=== PATIENT | female | born 1960 | race Caucasian/White ===

== ENCOUNTER 2020-04-18 16:41 | Inpatient (IN) | payer BC, OTHER ==
[2020-04-18] MEDS ORDERED: HYDROmorphone/Normal Saline 15 MG/30 ML PCA IV PRN (16:58)
[2020-04-18] MEDS ORDERED: Naloxone 0.4 MG/ML SDV IV PRN (17:00)
[2020-04-18] MEDS ORDERED: Meropenem 500 MG SDV ONE (17:19)
[2020-04-18] MEDS ORDERED: Scopolamine 1.5 MG Transdermal Patch TRDERM PRN (17:23)
[2020-04-18] MEDS ORDERED: Succinylcholine 200 MG/10 ML MDV ONE (17:30)
[2020-04-18] MEDS ORDERED: Propofol 200 MG/20 ML SDV ONE (17:30)
[2020-04-18] MEDS ORDERED: Rocuronium 50 MG/5 ML Vial ONE ×2 (17:30→18:52)
[2020-04-18] MEDS ORDERED: fentaNYL 250 MCG/5 ML SDV ONE ×2 (17:30→19:00)
[2020-04-18] MEDS ORDERED: Albuterol/Ipratropium 3.0-0.5 MG/3 ML Neb Soln INH ONE (17:30)
[2020-04-18] MEDS ORDERED: Neostigmine Methylsulfate 1 MG/ML 5 ML Syringe ONE (17:30)
[2020-04-18] MEDS ORDERED: Meropenem 500 MG in Sodium Chloride 0.9% 50 ML IV ONE (17:30)
[2020-04-18] MEDS ORDERED: Lactated Ringers 500 ML IV ONE (17:30)
[2020-04-18] MEDS ORDERED: Ondansetron 4 MG/2 ML SDV ONE (17:30)
[2020-04-18] MEDS ORDERED: Dexamethasone 4 MG/ML SDV ONE (17:30)
[2020-04-18] MEDS ORDERED: Glycopyrrolate 0.2 MG/ML 5 ML MDV ONE (17:30)
[2020-04-18] MEDS ORDERED: Midazolam 1 MG/ML 2 ML SDV ONE (18:04)
[2020-04-18] MEDS ORDERED: Dextrose 5%-Lactated Ringers 1,000 ML IV SCH ×2 (18:30→22:00)
[2020-04-18] MEDS ORDERED: Lactated Ringers 1,000 ML ONE (19:04)
[2020-04-18] MEDS ORDERED: Ondansetron 4 MG/2 ML SDV IVPUSH PRN (21:59)
[2020-04-18] MEDS ORDERED: Cyclobenzaprine 10 MG Tab PO PRN (22:00)
[2020-04-18] MEDS ORDERED: Pantoprazole 40 MG Vial IV ONE (22:00)
[2020-04-18] MEDS ORDERED: hydrOXYzine HCL 100 MG/2 ML SDV IM PRN (22:00)
[2020-04-18] MEDS ORDERED: LORazepam 1 MG Tab PO PRN (22:06)
[2020-04-18] MEDS ORDERED: diphenhydrAMINE 25 MG Cap PO PRN (22:07)
[2020-04-18] MEDS: Montelukast 10 MG Tab PO SCH (22:27)
[2020-04-18] MEDS: Gabapentin 300 MG Cap PO SCH (22:27)
[2020-04-18] MEDS: Hypromellose 0.3% Ophth Soln 15 ML Bottle EYEBOTH SCH (22:27)
[2020-04-18] MEDS: Albuterol/Ipratropium 3.0-0.5 MG/3 ML Neb Soln INH SCH (22:29)
[2020-04-19] MEDS: Lactated Ringers 1,000 ML IV SCH ×3 (00:01→17:17)
[2020-04-19] MEDS: Meropenem 500 MG in Sodium Chloride 0.9% 50 ML IV SCH ×5 (05:24→18:05)
[2020-04-19] MEDS: Albuterol/Ipratropium 3.0-0.5 MG/3 ML Neb Soln INH SCH ×4 (07:03→20:56)
[2020-04-19] MEDS ORDERED: Albuterol/Ipratropium 3.0-0.5 MG/3 ML Neb Soln INH PRN (07:24)
[2020-04-19] MEDS ORDERED: 50% Dextrose in Water 50 ML Syringe IVPUSH PRN (07:44)
[2020-04-19] MEDS ORDERED: Glucose Gel 15 GM in 37.5 GM Tube PO PRN (07:44)
[2020-04-19] MEDS ORDERED: Insulin Lispro 100 Unit/ML 3 ML KwikPen SUBCUT PRN (07:44)
[2020-04-19] MEDS ORDERED: Glucagon,Human Recombinant 1 MG Vial IM PRN (07:44)
[2020-04-19] MEDS: Levothyroxine 100 MCG Tab PO SCH (08:35)
[2020-04-19] MEDS: Gabapentin 300 MG Cap PO SCH ×2 (08:35→20:53)
[2020-04-19] MEDS: Losartan 50 MG Tab PO SCH (08:35)
[2020-04-19] MEDS: Enoxaparin 40 MG/0.4 ML Syringe SUBCUT SCH ×2 (08:35→20:53)
[2020-04-19] MEDS: Venlafaxine 75 MG Cap.ER PO SCH (08:35)
[2020-04-19] MEDS: [UNRECOGNIZED DRUG - OTHER] TOP SCH (08:37)
[2020-04-19] MEDS ORDERED: Aspirin 81 MG Tab.EC PO SCH (09:00)
[2020-04-19] MEDS: Hypromellose 0.3% Ophth Soln 15 ML Bottle EYEBOTH SCH ×2 (11:42→20:52)
[2020-04-19] MEDS: Insulin Lispro 100 Unit/ML 3 ML KwikPen SUBCUT PRN ×2 (16:17→22:30)
[2020-04-19] MEDS: Pantoprazole 40 MG Vial IV SCH (20:52)
[2020-04-19] MEDS: Montelukast 10 MG Tab PO SCH (20:53)
[2020-04-19] MEDS: Aspirin 81 MG Tab.EC PO SCH (20:53)
[2020-04-20] MEDS: Meropenem 500 MG in Sodium Chloride 0.9% 50 ML IV SCH (00:26)
[2020-04-20] MEDS: Lactated Ringers 1,000 ML IV SCH ×3 (02:33→22:15)
[2020-04-20] MEDS: Insulin Lispro 100 Unit/ML 3 ML KwikPen SUBCUT PRN ×4 (04:28→23:15)
[2020-04-20] MEDS: Albuterol/Ipratropium 3.0-0.5 MG/3 ML Neb Soln INH SCH ×4 (07:01→21:06)
[2020-04-20] MEDS: Levothyroxine 100 MCG Tab PO SCH (07:46)
[2020-04-20] MEDS: Docusate Sodium 100 MG Cap PO SCH ×2 (08:58→21:06)
[2020-04-20] MEDS: Gabapentin 300 MG Cap PO SCH ×2 (08:59→21:05)
[2020-04-20] MEDS: Bisacodyl 5 MG Tab PO SCH ×2 (08:59→21:06)
[2020-04-20] MEDS: Hypromellose 0.3% Ophth Soln 15 ML Bottle EYEBOTH SCH ×2 (08:59→21:06)
[2020-04-20] MEDS: Venlafaxine 75 MG Cap.ER PO SCH (08:59)
[2020-04-20] MEDS: Enoxaparin 40 MG/0.4 ML Syringe SUBCUT SCH ×2 (09:00→21:05)
[2020-04-20] MEDS: [UNRECOGNIZED DRUG - OTHER] TOP SCH (09:01)
[2020-04-20] MEDS: Losartan 50 MG Tab PO SCH (09:04)
--- NOTE | 2020-04-20 09:23 | PN ---
DATE OF SERVICE: 04/20/2020 SUBJECTIVE: Flavia is postoperative day #1. Vital signs have been stable. Blood sugars have been 185 and 184. Oral intake 220. Output via Coughlin catheter 1465. CORY drain put out 125 and CORY drain 2 put out 85. She states pain is controlled. The only question and concern she has is that a caffeine headache. She usually drinks [address] Peppers a day in [employer] with 3 pumps of mocha. REVIEW OF SYSTEMS: Remainder of review of systems negative for any pertinent positives and negatives. OBJECTIVE: GENERAL: Flavia is a pleasant 59-year-old female. She is alert and orientated. VITAL SIGNS: TPR 96.9; 82; 16; blood pressure 181/74. HEENT: Negative. NECK: Supple. HEART: Regular rate and rhythm. LUNGS: Clear. ABDOMEN: Dressings dry and intact. CORY drains as above, and the color is light pink. EXTREMITIES: Without peripheral edema. ASSESSMENT: Exploratory laparotomy with: 1. Right colectomy. 2. Excision of nodular lesion on distal small bowel 5.2 cm. 3. Separate small-bowel resection. 4. Excision of small mass, pyloric limb of the small bowel. 5. Biopsy of peritoneum inferior to cecum. 6. Repair of incarcerated incisional hernia. 7. Mobilization of omentum into pelvis. POSTOPERATIVE DIAGNOSES: 1. Large cystic mass involving appendix. 2. Loose peritoneal implant over distal small bowel. 3. Nodular lesion within the wall of the distal PB limb, small bowel. 4. Periumbilical incarcerated incisional hernia. 5. Date of surgery: 04/18/2020. Surgeon: James You MD. PLAN: 1. Schedule and have consent signed for delayed primary closure on , 04/21/2020 at 07:15 a.m., IV, local sedation with TAP block. James oYu MD. 2. Leave Coughlin in for accurate intake and output. 3. Communication order written. May have coffee and tea. 4. Dulcolax 2 tablets b.i.d. orally until the patient has bowel movements. 5. Colace 100 mg b.i.d. 6. Decrease IV to 100 mL per hour. 7. Continue use of incentive spirometer. 8. We will evaluate p.r.n. or in a.m. Rani Rojo PA-C /[id number]
[2020-04-20] MEDS ORDERED: FLU VACC QS2020-21(6MOS UP)/PF 60 MCG/0.5 ML SYRINGE IM ONE (10:00)
--- NOTE | 2020-04-20 19:47 | PN ---
DATE OF SERVICE: 04/19/2020 The patient has been afebrile with stable vital signs. Urine output has been adequate. Blood sugar is somewhat high, we will begin some insulin coverage today. Otherwise, no major problems were noted. The Coughlin catheter we will leave in 1 more day to make sure the patient is going to maintain adequate urine output. We will switch the IV over to simple LR and as mentioned above begin the insulin coverage. The patient has evidence for pulmonary embolism, and we will start some Lovenox and additional SCDs. Otherwise, maximize activity and work with pulmonary toilet. James You MD /[id number]
[2020-04-20] MEDS: Pantoprazole 40 MG Vial IV SCH (20:54)
[2020-04-20] MEDS: Aspirin 81 MG Tab.EC PO SCH (21:05)
[2020-04-20] MEDS: Montelukast 10 MG Tab PO SCH (21:06)
[2020-04-21] MEDS: Insulin Lispro 100 Unit/ML 3 ML KwikPen SUBCUT PRN ×4 (05:22→22:01)
[2020-04-21] MEDS ORDERED: Meropenem 500 MG SDV ONE (06:43)
[2020-04-21] MEDS ORDERED: Lidocaine 1% with EPINEPHrine 1:100,000 50 ML MDV ONE (06:43)
[2020-04-21] MEDS ORDERED: Bupivacaine 0.5% 50 ML MDV ONE (06:43)
[2020-04-21] MEDS ORDERED: fentaNYL 100 MCG/2 ML SDV ONE (07:03)
[2020-04-21] MEDS ORDERED: Propofol 200 MG/20 ML SDV ONE ×2 (07:03→07:47)
[2020-04-21] MEDS ORDERED: Midazolam 1 MG/ML 2 ML SDV ONE (07:04)
[2020-04-21] MEDS ORDERED: Dexamethasone 4 MG/ML SDV ONE (07:25)
[2020-04-21] MEDS ORDERED: Ondansetron 4 MG/2 ML SDV ONE (07:25)
[2020-04-21] MEDS: Albuterol/Ipratropium 3.0-0.5 MG/3 ML Neb Soln INH SCH ×4 (07:26→20:05)
--- NOTE | 2020-04-21 08:18 | PN ---
DATE OF SERVICE: 04/21/2020 SUBJECTIVE: Flavia is postoperative day. She is n.p.o. for delayed primary closure. Afebrile. Oral intake not recorded. Urine output via Coughlin catheter is 655. CORY drains 1 and 2 put out 80 and 50, and she has had 2 bowel movements. Pain has been controlled with ASSISTANT SPA DIRECTOR. REVIEW OF SYSTEMS: Remainder of review of systems negative for any pertinent positives and negatives. OBJECTIVE: GENERAL: Flavia Aragon is a pleasant 59-year-old female. VITAL SIGNS: TPR from 0300; 96.7, 110, 18, and blood pressure 128/57. HEENT: Negative. NECK: Supple. HEART: Regular rate and rhythm. LUNGS: Clear. ABDOMEN: Dressing has been saturating, ABDs x2, and it had to be changed. CORY drain 1 and 2 put out 80 and 50. Abdominal binder is on. EXTREMITIES: Without peripheral edema. ASSESSMENT: Exploratory laparotomy with; 1. Right colectomy. 2. Excision of nodular lesion on distal small bowel, 5.2 cm. 3. Separate small-bowel resection. 4. Excision of small mass pyloric limb of small bowel. 5. Biopsy of peritoneum inferior to cecum. 6. Repair of incarcerated incisional hernia. 7. Mobilization of omentum into pelvis. POSTOPERATIVE DIAGNOSES: 1. Large cystic mass involving appendix. 2. Loose peritoneal implant over distal small bowel. 3. Nodular lesion within the wall of the distal pancreatico-biliary limb, small bowel. 4. Periumbilical incarcerated incisional hernia. DATE OF SURGERY: 04/18/2020. SURGEON: James You MD. PLAN: Orders to be written after delayed primary closure. Rani Rojo PA-C /[id number]
[2020-04-21] MEDS: Lactated Ringers 1,000 ML IV SCH ×2 (08:42→11:54)
[2020-04-21] MEDS: [UNRECOGNIZED DRUG - OTHER] TOP SCH (09:45)
[2020-04-21] MEDS: oxyCODONE 5 MG Tab PO PRN ×3 (09:45→17:44)
[2020-04-21] MEDS: Levothyroxine 100 MCG Tab PO SCH (09:45)
[2020-04-21] MEDS: Losartan 50 MG Tab PO SCH (09:47)
[2020-04-21] MEDS: Venlafaxine 75 MG Cap.ER PO SCH (09:47)
[2020-04-21] MEDS: Hypromellose 0.3% Ophth Soln 15 ML Bottle EYEBOTH SCH ×2 (09:47→20:00)
[2020-04-21] MEDS: Docusate Sodium 100 MG Cap PO SCH ×2 (09:47→19:59)
[2020-04-21] MEDS: Bisacodyl 5 MG Tab PO SCH ×2 (09:47→19:59)
[2020-04-21] MEDS: Gabapentin 300 MG Cap PO SCH ×2 (09:47→19:59)
[2020-04-21] MEDS: Enoxaparin 40 MG/0.4 ML Syringe SUBCUT SCH (09:59)
[2020-04-21] MEDS: Acetaminophen 500 MG Tab PO SCH ×3 (10:44→22:00)
[2020-04-21] MEDS ORDERED: FLU VACC QS2020-21(6MOS UP)/PF 60 MCG/0.5 ML SYRINGE IM ONE (15:00)
[2020-04-21] MEDS ORDERED: Lactated Ringers 1,000 ML IV SCH (16:45)
[2020-04-21] MEDS ORDERED: Scopolamine 1.5 MG Transdermal Patch TOP SCH (17:00)
[2020-04-21] MEDS: Pantoprazole 40 MG Vial IV SCH (19:53)
[2020-04-21] MEDS: Montelukast 10 MG Tab PO SCH (20:00)
[2020-04-21] MEDS: Aspirin 81 MG Tab.EC PO SCH (20:00)
[2020-04-21] MEDS ORDERED: Ondansetron 4 MG Tab.DIS PO PRN (22:18)
[2020-04-22] MEDS: Acetaminophen 500 MG Tab PO SCH ×2 (04:48→09:14)
[2020-04-22] MEDS: Insulin Lispro 100 Unit/ML 3 ML KwikPen SUBCUT PRN ×2 (05:26→10:28)
[2020-04-22] MEDS: Albuterol/Ipratropium 3.0-0.5 MG/3 ML Neb Soln INH SCH (07:48)
[2020-04-22 07:58] VITALS: BP 151/72
[2020-04-22] MEDS: Docusate Sodium 100 MG Cap PO SCH (08:12)
[2020-04-22] MEDS: Levothyroxine 100 MCG Tab PO SCH (08:12)
[2020-04-22 08:14] VITALS: PULSE 82
[2020-04-22] MEDS: Losartan 50 MG Tab PO SCH (08:14)
[2020-04-22] MEDS: Gabapentin 300 MG Cap PO SCH (08:14)
[2020-04-22] MEDS: Hypromellose 0.3% Ophth Soln 15 ML Bottle EYEBOTH SCH (08:15)
[2020-04-22] MEDS: Venlafaxine 75 MG Cap.ER PO SCH (08:15)
[2020-04-22] MEDS: Bisacodyl 5 MG Tab PO SCH (08:16)
[2020-04-22] MEDS: [UNRECOGNIZED DRUG - OTHER] TOP SCH (08:17)
[2020-04-22] MEDS ORDERED: FLU VACC QS2020-21(6MOS UP)/PF 60 MCG/0.5 ML SYRINGE IM ONE (10:00)
--- NOTE | 2020-04-22 14:50 | PN ---
DATE OF SERVICE: 04/21/2020 The patient has been afebrile with stable vital signs. She did move her bowels overnight and will be on full liquid diet and advance as tolerated. She underwent delayed primary closure without incident. Today, will go over to oral pain medication. Today her CORY drains and Couglhin catheter will be removed. She did have some oozing from the incision. Today we will discontinue her Lovenox and make sure she is up and walking as much as possible. The pathology report is still pending and she may be ready for discharge home tomorrow. James You MD /[id number]
--- NOTE | 2020-04-22 16:37 | DISCH ---
ADMISSION DIAGNOSES: 1. Abdominal pain, status post Artemio-en-Y gastric bypass surgery. 2. Unspecified surgical malabsorption. 3. B12 deficiency. 4. Vitamin D deficiency. 5. Diabetes mellitus. 6. Hypertension. 7. Hypothyroidism. 8. Dysthymia. 9. Gout. 10.Hyperlipidemia. 11.Obstructive sleep apnea, with use of CPAP. PROCEDURES PERFORMED: 1. Exploratory laparotomy with: a. Right colectomy. b. Excision of nodular lesion on distal small bowel, 5.2 cm. c. Separate small bowel resection. d. Excision of small mass, pyloric limb of the small bowel. e. Biopsy of peritoneum inferior to cecum. f. Repair of incarcerated incisional hernia. g. Mobilization of omentum into pelvis. 2. Delayed primary closure for open abdominal incision, 04/20/2020. POSTOPERATIVE DIAGNOSES: 1. Large cystic mass involving the appendix. 2. Loose peritoneal implant over distal small bowel. 3. Nodular lesion within the wall of the distal PB limb, small bowel. 4. Periumbilical incarcerated incisional hernia. DATE OF SURGERY: 04/18/2020. SURGEON: James You MD. HISTORY: Flavia is a 59-year-old female who presented with severe abdominal pain. After preoperative evaluation and discussion of possible risks and possible complications, she wished to proceed with surgical procedure. Surgery was on 04/19/2020. She had no operative complications. On postoperative day 1, blood sugars were monitored. Pain was controlled with LANGUAGE THERAPIST. Bowel stimulation was started. IV was decreased to 100 mL/hour. On postoperative day 2, she had delayed primary closure and was started on oral pain medication, had bowel movements. Blood sugars continued to be monitored. On 04/22/2020, Flavia was able to be discharged to home. Vital signs stable. Activity good. Pain managed. Oral intake adequate at 2600, and urine output 2200. PHYSICAL EXAMINATION: GENERAL: Flavia Aragon is a 59-year-old female. VITAL SIGNS: TPR is 98.2, 82, 16; blood pressure 151/72. HEENT: Negative. NECK: Supple. HEART: Regular rate and rhythm. LUNGS: Clear. ABDOMEN: Dressings dry and intact. Aquacel dressing is on, 4x4 over CORY drain sites. EXTREMITIES: Without peripheral edema. DISPOSITION: Discharged to home. CONDITION: Stable and improving. FOLLOWUP: Appointment with Rani Rojo PA-C, on 05/02/2020 at 10 a.m. HOME MEDICATIONS: 1. Flexeril 10 mg q.6 hours p.r.n. muscle spasms, #30. 2. Oxycodone 5 mg every 4 hours p.r.n. pain, #42. 3. Tylenol Extra Strength 1000 mg every 6 hours p.r.n. pain. 4. Albuterol 1 to 2 puffs every 4 hours p.r.n. shortness of breath. 5. Aspirin 81 mg oral daily. 6. Vitamin D3 one capsule oral daily. 7. Vitamin B12 one sublingual daily. 8. Epinephrine 1 pen subcu as directed p.r.n. allergies. 9. Flonase 2 sprays in each nostril once daily. 10.Folic acid 1 tablet oral daily. 11.Neurontin 1 tablet oral twice daily. 12.Nizoral 2% cream 1 applicator b.i.d. for rash. 13.Probiotic 1 capsule oral daily. 14.Ativan 1 tablet every 6 hours p.r.n. anxiety. 15.Levothyroxine 100 mcg daily. 16.Losartan 1 tablet oral daily. 17.Singulair 10 mg oral daily p.r.n. allergies. 18.Multivitamin 1 twice daily. 19.Venlafaxine XR 2 capsules oral daily. 20.Restasis 1 drop in each eye twice daily. 21.Valium 1 tablet as needed p.r.n. 30 to 60 minutes before procedure, before flying. 22.Benadryl 1 at bedtime p.r.n. sleep. 23.Tramadol, discontinue while taking the oxycodone. DISCHARGE INSTRUCTIONS: Diet: Usual diet as tolerated. No raw vegetables or fruits. Drink 8 to 10 glasses of water a day. Activity: No lifting greater than 10 pounds for 4 weeks. Driving After Discharge: Do not drive for 1 week and while on pain medication. Shower/Bathing: May shower. Notify provider if any fever, chills, night sweats, or fatigue. Keep site clean and dry. Wear abdominal binder for 6 weeks as tolerated. Replace Aquacel dressing on 04/24/2020, and then take off the Aquacel dressing on 04/27/2020. Cover kerri with an ABD or leave open. Special Instruction: Use incentive spirometer 10 times every hour while awake.
[2020-04-22] MEDS ORDERED: Pantoprazole 40 MG Tab.CR PO SCH (21:00)
--- NOTE | 2020-04-24 12:05 | OR ---
DATE OF PROCEDURE: 04/18/2020 SURGEON: James You MD PREOPERATIVE DIAGNOSIS: Markedly enlarged cystic appendix. POSTOPERATIVE DIAGNOSES: 1. Large cystic mass involving appendix. 2. Loose peritoneal implant overlying the distal small bowel. 3. Nodular lesion within wall of distal biliopancreatic limb of small bowel. 4. Periumbilical incisional hernia. OPERATIVE PROCEDURES: Exploratory laparotomy with: 1. Right colectomy (63337). 2. Excision of nodular lesion of distal small bowel (75452). 3. Separate small bowel resection (62240). 4. Excision of the small mass involving wall of biliopancreatic limb of small bowel (09163). 5. Repair of incarcerated incisional hernia (46239). 6. Mobilization of omentum into pelvis to viscera from the pelvic and lower abdominal area (75227). ANESTHESIA: General. INDICATIONS FOR PROCEDURE: A 59-year-old female presenting with several days of increasing right lower abdominal pain. A CT scan was obtained earlier today which showed a very enlarged appendix filled with what appeared to be largely fluid. This certainly is suspicious for an appendiceal neoplasm, and given this, plan is to proceed with exploratory laparotomy, and our goal will be to get the appendix out intact, most likely by means of a right colectomy. Potential risks of procedure including bleeding, infection, leaks from various GI tract closures, or possible local or distant tumor recurrence were all reviewed, and the patient wishes to proceed. DETAILS OF PROCEDURE: The patient was taken to the operating room, placed in a supine position. After general endotracheal anesthesia was induced, a Coughlin catheter was inserted, and the abdomen prepped and draped. A midline incision was then made from somewhat above the umbilicus to somewhat below it, carried down through the full thickness of abdominal wall. During the course of the dissection, a periumbilical incisional hernia was encountered, and the hernia contents were excised. General exploration of the patient had as expected a large white cystic-appearing appendix. This was associated with generalized intense inflammation and adherence to the cecum. General exploration revealed no evidence of peritoneal carcinomatosis per se. There was a small strand of whitish material loosely adherent to the distal small bowel that may have simply at some point come off the appendix, which at this point was a large white cystic mass. Apart from that, there was no significant lymphadenopathy within the ileocolic or right colic vascular chains, and the patient was noted to have a small nodule in the distal aspect of the biliopancreatic limb of the small bowel. This was not a peritoneal lesion, but something more within the wall of the bowel. This was excised transversely with a ANNIA stapler, and the loose nodular area of the distal small bowel was also then excised. This measured 5.2 cm in total length. At this point, decision was made to proceed with a right colectomy. Peritoneum lateral to the cecum and ascending colon were then divided. This allowed immediate mobilization of the right colon including the area of the appendix. The peritoneum just below where the appendix was lying was somewhat finely roughened, and this specimen of peritoneum was then excised and sent as a separate surgical specimen. Once the right colon was well-mobilized, the distal small bowel was then divided with ANNIA stapler as was the mid transverse colon. In order to get the anastomosis up to the transverse colon without tension, an additional 15 cm of small bowel was then excised distally with ANNIA stapler. The mesentery was then resected with ANNIA kerri as well taking the ileocolic chain down flush with its take-off from the superior mesenteric artery. Similarly, the right colic chain was taken off flush with the superior mesenteric artery and remaining mesenteric attachments divided and specimen delivered from the field. This specimen was not opened at the appendiceal level, so as to allow a well-constructed pathology evaluation. GI tract continuity was then accomplished with [id number] ileocolic anastomosis with 2 internal firings of the ANNIA 60 mm stapler, common opening was closed transversely with the same stapler. The angles were then anastomosed. The mesenteric defect approximated with some 3-0 Vicryl stitch and reinforced also with fibrin sealant. The abdomen was then irrigated with antibiotic-containing saline solution. Two Mauro- Berkowitz drains were then placed through stab wounds lateral to the main incision. Omentum was then mobilized down into the pelvis and lower abdomen to displace the viscera from those surfaces in the event that postoperative radiation treatment might be at some point required. The midline fascia was then approximated with #2 Vicryl stitch, which included repair of the incarcerated incisional hernia, which had contained some omentum in it earlier. The skin and subcutaneous tissue were felt to be at high risk for wound infection if they were closed, and given this, the skin and subcutaneous tissue were packed open for a planned delayed primary closure in 48 hours. The patient was taken to the recovery room in satisfactory condition. James You MD /[id number]
--- NOTE | 2020-04-26 14:00 | OR ---
DATE OF PROCEDURE: 04/21/2020 SURGEON: James You MD PREOPERATIVE DIAGNOSIS: Open abdominal incision. POSTOPERATIVE DIAGNOSIS: Open abdominal incision. PROCEDURE: Delayed primary closure of open abdominal incision. ANESTHESIA: IV sedation plus local. INDICATION FOR PROCEDURE: The patient is status post a complicated right colectomy secondary to probable appendiceal tumor the skin and subcutaneous tissue were felt to be high risk for wound infection if primary closure was undertaken, and given this, the skin and subcutaneous tissue were packed open for delayed primary closure at this time. Potential risks including bleeding and infection were reviewed, and the patient wishes to proceed. DETAILS OF PROCEDURE: The patient was taken to the operating room, placed in the supine position. IV sedation was administered, after which the abdominal dressing was taken down and inspected. This was found to be clean and the abdomen was then prepped and draped. Using ultrasound guidance, bilateral transversus abdominis plane blocks were then placed and the incision was anesthetized with 1% lidocaine mixed with Marcaine and irrigated with meropenem-containing saline solution. Subcutaneous tissue was approximated with 2 layers of 3-0 and 4-0 Vicryl stitch deep and kerri for the skin. Dressing was applied. The patient was taken to the recovery room in satisfactory condition. James You MD /[id number]
== END 2020-04-22 10:45 | disposition home or self-care (01) | DRG 221 ==
LOC: JP.MS 16:41
PROVIDERS: ADMIT Surgery; ATTEND Surgery
PROC: 0DTF0ZZ Resection of Right Large Intestine, Open Approach (ICD-10-PCS; principal; 2020-04-18)
PROC: 0DB80ZZ Excision of Small Intestine, Open Approach (ICD-10-PCS; 2020-04-18)
PROC: 0DB80ZZ Excision of Small Intestine, Open Approach (ICD-10-PCS; 2020-04-18)
PROC: 0WQF0ZZ Repair Abdominal Wall, Open Approach (ICD-10-PCS; 2020-04-18)
DX: K35.80 Unspecified acute appendicitis (principal); K43.0 Incisional hernia with obstruction, without gangrene; Z20.828 Contact with and (suspected) exposure to other viral communicable diseases; K63.89 Other specified diseases of intestine; K91.2 Postsurgical malabsorption, not elsewhere classified; E55.9 Vitamin D deficiency, unspecified; I10 Essential (primary) hypertension; E03.9 Hypothyroidism, unspecified; M10.9 Gout, unspecified; E78.5 Hyperlipidemia, unspecified; G47.33 Obstructive sleep apnea (adult) (pediatric); E53.8 Deficiency of other specified B group vitamins; Z90.49 Acquired absence of other specified parts of digestive tract; Z79.890 Hormone replacement therapy; Z79.899 Other long term (current) drug therapy
CPT/HCPCS: 36415; 80053; 82378; 82607; 82728; 82746; 82962; 83735; 83880; 84100; 84443; 85027; 88112; 88305; 88307; 88309; 88341; 88342; 90686; 94640; 94762; 97162-GP; 97530-GP; 97535-GP; A9270-GY; C9113; G0008; J0131; J0171; J0330; J1100; J1170; J1650; J1790; J1815; J2185; J2250; J2405; J2704; J2710; J2795; J3010; J3490; J7050; J7120; J7121; J7620-GY; U0002

== ENCOUNTER 2020-09-05 06:07 | Day surgery (SDC) | payer BC ==
[2020-09-05] MEDS ORDERED: Dextrose 5%-Lactated Ringers 1,000 ML IV SCH (06:56)
[2020-09-05] MEDS ORDERED: fentaNYL 100 MCG/2 ML SDV ONE (07:26)
[2020-09-05] MEDS ORDERED: Propofol 200 MG/20 ML SDV ONE (07:26)
[2020-09-05] MEDS ORDERED: Midazolam 1 MG/ML 2 ML SDV ONE (07:26)
[2020-09-05 09:19] VITALS: BP 136/85; PULSE 55
--- NOTE | 2020-09-11 11:10 | OR ---
DATE OF PROCEDURE: 09/05/2020 SURGEON: James You MD PREOPERATIVE DIAGNOSIS: Status post right colectomy for appendiceal carcinoma. POSTOPERATIVE DIAGNOSES: 1. Status post right colectomy for appendiceal carcinoma with no evidence of recurrence. 2. Minimal left colonic diverticulosis. OPERATIVE PROCEDURE: Flexible colonoscopy. ANESTHESIA: IV sedation. INDICATIONS FOR PROCEDURE: The patient is several months status post a right colectomy for appendiceal carcinoma. Per Oncology, the patient was felt to be more or less a "surgical cure." She would still be at some risk for anastomotic recurrence. Given this, she is to undergo a colonoscopy at this point. This will also serve as a screening colonoscopy for remainder of the colon. Potential risks including bleeding and perforation were discussed, and the patient wishes to proceed. DETAILS OF PROCEDURE: The patient was taken to the operating room, placed in a left lateral decubitus position. IV sedation was administered, after which the initial digital rectal exam was performed and was unremarkable. Colonoscope was then passed into the rectum with retroflexion revealing uncomplicated hemorrhoidal columns. Scope was eventually passed to the ileotransverse colon anastomosis. To that level, the prep was quite good. The patient had some left colonic diverticulosis which was otherwise uncomplicated. Otherwise, the examination was normal. Specifically, there were no areas of polyps or other signs of neoplasia. There were no signs of anastomotic recurrence at the ileocolic anastomosis. Scope was then withdrawn and the above findings reconfirmed, and the procedure was then concluded. The patient is at highest risk for recurrence in this case, probably less with anastomotic recurrence as by definition probably with some tumor cells within the lumen of the colon at the time of the resection. Given this, we would recommend a repeat colonoscopy in 1 year. If that is normal, the patient would thereafter be recommended to have a colonoscopy every 5 years. James You MD /[id number]
== END 2020-09-05 09:46 | disposition home or self-care (01) ==
LOC: JP.SDS 06:07
PROVIDERS: ATTEND Surgery
DX: Z12.11 Encounter for screening for malignant neoplasm of colon (principal); K57.30 Diverticulosis of large intestine without perforation or abscess without bleeding; K64.9 Unspecified hemorrhoids; I10 Essential (primary) hypertension; G47.33 Obstructive sleep apnea (adult) (pediatric); E66.9 Obesity, unspecified; Z90.49 Acquired absence of other specified parts of digestive tract; Z85.09 Personal history of malignant neoplasm of other digestive organs; Z68.39 Body mass index [BMI] 39.0-39.9, adult
CPT/HCPCS: J2250; J2704; J3010

== ENCOUNTER 2020-10-31 05:55 | Inpatient (IN) | payer BC ==
[2020-10-31] MEDS ORDERED: Acetaminophen 500 MG Tab PO ONE (06:15)
[2020-10-31] MEDS ORDERED: Gabapentin 300 MG Cap PO ONE (06:15)
[2020-10-31] MEDS ORDERED: Bupivacaine 0.5% 50 ML MDV ONE ×2 (06:39→09:24)
[2020-10-31] MEDS ORDERED: Lidocaine 1% with EPINEPHrine 1:100,000 50 ML MDV ONE ×2 (06:39→09:24)
[2020-10-31] MEDS ORDERED: Meropenem 500 MG SDV ONE (06:39)
[2020-10-31] MEDS ORDERED: Albuterol/Ipratropium 3.0-0.5 MG/3 ML Neb Soln NEB ONE (07:00)
[2020-10-31] MEDS ORDERED: Dextrose 5%-Lactated Ringers 1,000 ML IV SCH (07:00)
[2020-10-31] MEDS ORDERED: Rocuronium 50 MG/5 ML Vial ONE ×2 (07:12→09:00)
[2020-10-31] MEDS ORDERED: Neostigmine Methylsulfate 1 MG/ML 5 ML Syringe ONE (07:12)
[2020-10-31] MEDS ORDERED: Dexamethasone 4 MG/ML SDV ONE (07:12)
[2020-10-31] MEDS ORDERED: Succinylcholine 200 MG/10 ML MDV ONE (07:12)
[2020-10-31] MEDS ORDERED: Glycopyrrolate 0.2 MG/ML 5 ML MDV ONE (07:12)
[2020-10-31] MEDS ORDERED: Propofol 200 MG/20 ML SDV ONE (07:12)
[2020-10-31] MEDS ORDERED: fentaNYL 250 MCG/5 ML SDV ONE ×2 (07:12→07:54)
[2020-10-31] MEDS ORDERED: Ondansetron 4 MG/2 ML SDV ONE (07:12)
[2020-10-31] MEDS ORDERED: Scopolamine 1.5 MG Transdermal Patch ONE (07:12)
[2020-10-31] MEDS ORDERED: Naloxone 0.4 MG/ML SDV IVPUSH PRN (07:18)
[2020-10-31] MEDS ORDERED: HYDROmorphone/Normal Saline 15 MG/30 ML PCA IV PRN (07:18)
[2020-10-31] MEDS ORDERED: Linezolid 600 MG in Premix Bag 1 BAG IV ONE ×2 (07:30→20:00)
[2020-10-31] MEDS ORDERED: Ketamine 500 MG/5 ML MDV IV SCH (08:00)
[2020-10-31] MEDS ORDERED: Ketamine 50 MG in Sodium Chloride 0.9% 49.5 ML IV SCH (08:00)
[2020-10-31] MEDS ORDERED: Naloxone 0.4 MG/ML SDV IV PRN (08:00)
[2020-10-31] MEDS ORDERED: Albuterol/Ipratropium 3.0-0.5 MG/3 ML Neb Soln INH PRN (12:00)
[2020-10-31] MEDS ORDERED: Ondansetron 4 MG/2 ML SDV IVPUSH PRN (12:00)
[2020-10-31] MEDS ORDERED: Pantoprazole 40 MG Vial IV SCH (12:00)
[2020-10-31] MEDS ORDERED: hydrOXYzine HCL 100 MG/2 ML SDV IM PRN (12:00)
[2020-10-31] MEDS: Dextrose 5%-Lactated Ringers 1,000 ML IV SCH ×2 (12:53→19:17)
[2020-10-31] MEDS: Sodium Ferric Gluconate Cmplex 250 MG in Sodium Chloride 0.9% 100 ML IV SCH (13:40)
[2020-10-31] MEDS: Albuterol/Ipratropium 3.0-0.5 MG/3 ML Neb Soln INH SCH ×2 (16:17→20:33)
[2020-10-31] MEDS: Hypromellose 0.3% Ophth Soln 15 ML Bottle EYEBOTH SCH (20:32)
[2020-10-31] MEDS: Montelukast 10 MG Tab PO SCH (20:32)
[2020-10-31] MEDS: Gabapentin 300 MG Cap PO SCH (20:32)
[2020-11-01] MEDS: Dextrose 5%-Lactated Ringers 1,000 ML IV SCH ×2 (02:30→09:05)
[2020-11-01] MEDS ORDERED: Ondansetron 4 MG Tab.DIS PO PRN (07:27)
[2020-11-01] MEDS: Albuterol/Ipratropium 3.0-0.5 MG/3 ML Neb Soln INH SCH ×4 (07:54→20:46)
[2020-11-01] MEDS: Levothyroxine 100 MCG Tab PO SCH (08:10)
--- NOTE | 2020-11-01 09:00 | PN ---
DATE OF SERVICE: 11/01/2020 SUBJECTIVE: Flavia reports her pain is controlled with the VEST BACKER. She has been up ambulating. Vital signs stable, using her incentive spirometer. Intake 690, output via Coughlin catheter is 1220. REVIEW OF SYSTEMS: Remainder of review of systems negative for any pertinent positives and negatives. OBJECTIVE: GENERAL: Flavia Aragon is a pleasant 60-year-old female. She is alert and orientated. VITAL SIGNS: TPR is 96.9, 68, 14. Blood pressure 122/66. HEENT: Negative. NECK: Supple. HEART: Regular rate and rhythm. LUNGS: Clear. ABDOMEN: Dressings dry and intact. Pressure dressing of [address] EXTREMITIES: Without peripheral edema. ASSESSMENT: Exploratory laparotomy with incisional hernia: 1. Repair of incarcerated incisional hernia with mesh. 2. Excision of peritoneal nodules. 3. Placement of Vicryl mesh. POSTOPERATIVE DIAGNOSES: 1. Multifocal incarcerated and incisional hernias. 2. Peritoneal nodule. 3. Segment of appendix epiploica, 6 cm. 4. Omentum x2, both less than 1 cm biopsies. Date of procedure, 10/31/2020. Surgeon: James You MD. PLAN: 1. Discontinue Coughlin catheter. Decrease IV to 100 mL per hour. Step 2 gastric bypass diet. May have caffeinated carbonation beverages. Discontinue accounts receivable executive. 2. May shower. 3. We will evaluate p.r.n. or in a.m. Rani Rojo PA-C /[id number]
[2020-11-01] MEDS: Losartan 50 MG Tab PO SCH (09:31)
[2020-11-01] MEDS: Venlafaxine 75 MG Cap.ER PO SCH (09:33)
[2020-11-01] MEDS: Fluticasone Propionate Nasal Spray 16 GM Bottle NASBOTH SCH (09:34)
[2020-11-01] MEDS: Gabapentin 300 MG Cap PO SCH ×2 (09:34→20:47)
[2020-11-01] MEDS: Aspirin 81 MG Tab.EC PO SCH (09:34)
[2020-11-01] MEDS: Hypromellose 0.3% Ophth Soln 15 ML Bottle EYEBOTH SCH ×2 (09:34→20:47)
[2020-11-01] MEDS: Pantoprazole 40 MG Tab.CR PO SCH (11:52)
[2020-11-01] MEDS: Sodium Ferric Gluconate Cmplex 250 MG in Sodium Chloride 0.9% 100 ML IV SCH (13:24)
[2020-11-01] MEDS ORDERED: Furosemide 20 MG/2 ML VIAL IVPUSH ONE (14:30)
[2020-11-01] MEDS: Montelukast 10 MG Tab PO SCH (20:46)
[2020-11-02] MEDS: Dextrose 5%-Lactated Ringers 1,000 ML IV SCH (01:42)
[2020-11-02] MEDS: Albuterol/Ipratropium 3.0-0.5 MG/3 ML Neb Soln INH SCH ×4 (07:22→20:20)
[2020-11-02] MEDS: oxyCODONE 5 MG Tab PO PRN ×4 (07:48→20:18)
[2020-11-02] MEDS: Pantoprazole 40 MG Tab.CR PO SCH (07:50)
[2020-11-02] MEDS: Levothyroxine 100 MCG Tab PO SCH (07:50)
[2020-11-02] MEDS: Hypromellose 0.3% Ophth Soln 15 ML Bottle EYEBOTH SCH ×2 (08:50→20:16)
[2020-11-02] MEDS: Venlafaxine 75 MG Cap.ER PO SCH (08:50)
[2020-11-02] MEDS: Fluticasone Propionate Nasal Spray 16 GM Bottle NASBOTH SCH (08:50)
[2020-11-02] MEDS: Losartan 50 MG Tab PO SCH (08:50)
[2020-11-02] MEDS: Aspirin 81 MG Tab.EC PO SCH (08:51)
[2020-11-02] MEDS: Bisacodyl 5 MG Tab PO SCH ×2 (08:51→20:16)
[2020-11-02] MEDS: Docusate Sodium 100 MG Cap PO SCH ×2 (08:51→20:16)
[2020-11-02] MEDS: Gabapentin 300 MG Cap PO SCH ×2 (08:51→20:16)
--- NOTE | 2020-11-02 11:09 | PN ---
DATE OF SERVICE: 10/31/2020 SUBJECTIVE: Flavia is postop day #2. Yesterday, she was changed to oral pain medication due to increased sedation from the MODELING DIRECTOR. She is more awake. Vital signs have been stable. Oral intake 1670. Urine output not recorded. She did have a bowel movement right after rounds. No other concerns or questions. OBJECTIVE: GENERAL: Flavia is a pleasant 60-year-old female. VITAL SIGNS: TPR is 97.2, 73, 12, blood pressure 139/64. HEENT: Negative. NECK: Supple. HEART: Regular rate and rhythm. LUNGS: Clear. ABDOMEN: Dressings dry and intact. Abdominal binder is on and Aquacel dressing negative. EXTREMITIES: Without peripheral edema. ASSESSMENT: 1. Exploratory laparotomy with incisional hernia. 2. Repair of incarcerated incisional hernia with mesh. 3. Excision of peritoneal nodules. 4. Placement of Vicryl mesh. POSTOPERATIVE DIAGNOSES: 1. Multifocal incarcerated incisional hernias. 2. Peritoneal nodule. 3. Segment of appendix epiploica 6 cm. 4. Omentum x2, both less than 1 cm biopsies. 5. Date of procedure: 10/31/2020. Surgeon: James You MD. PLAN: 1. Step 4 gastric bypass diet. 2. May shower. 3. Continue ambulation and use of incentive spirometer. 4. We will evaluate p.r.n. or in a.m. Rani Rojo PA-C /[id number]
[2020-11-02] MEDS: Cyclobenzaprine 10 MG Tab PO PRN (15:37)
[2020-11-02] MEDS: Montelukast 10 MG Tab PO SCH (20:16)
[2020-11-03] MEDS: Dextrose 5%-Lactated Ringers 1,000 ML IV SCH (00:21)
[2020-11-03] MEDS: Cyclobenzaprine 10 MG Tab PO PRN (00:21)
[2020-11-03] MEDS: oxyCODONE 5 MG Tab PO PRN ×2 (02:46→19:04)
[2020-11-03] MEDS: Albuterol/Ipratropium 3.0-0.5 MG/3 ML Neb Soln INH SCH ×4 (07:14→21:09)
[2020-11-03] MEDS: Bisacodyl 5 MG Tab PO SCH ×2 (08:18→20:43)
[2020-11-03] MEDS: Venlafaxine 75 MG Cap.ER PO SCH (08:18)
[2020-11-03] MEDS: Levothyroxine 100 MCG Tab PO SCH (08:19)
[2020-11-03] MEDS: Pantoprazole 40 MG Tab.CR PO SCH (08:19)
[2020-11-03] MEDS: Aspirin 81 MG Tab.EC PO SCH (08:19)
[2020-11-03] MEDS: Fluticasone Propionate Nasal Spray 16 GM Bottle NASBOTH SCH (08:19)
[2020-11-03] MEDS: Losartan 50 MG Tab PO SCH (08:19)
[2020-11-03] MEDS: Docusate Sodium 100 MG Cap PO SCH ×2 (08:19→20:43)
[2020-11-03] MEDS: Gabapentin 300 MG Cap PO SCH ×2 (08:20→21:11)
[2020-11-03] MEDS: Hypromellose 0.3% Ophth Soln 15 ML Bottle EYEBOTH SCH ×2 (08:20→21:10)
--- NOTE | 2020-11-03 12:21 | PN ---
DATE OF SERVICE: 11/03/2020 SUBJECTIVE: Flavia states she feels weak and shaky today. States it is very difficult for her to get in and out of bed. No nausea. Pain is controlled with oxycodone. Afebrile. Oral intake 2315. Urine output 2400. She started having bowel movements and had 3 yesterday. REVIEW OF SYSTEMS: Remainder of review of systems negative for any pertinent positives or negatives. OBJECTIVE: GENERAL: Flavia Aragon is a pleasant 60-year-old female, alert and orientated, pale today. VITAL SIGNS: TPR is 97, 78, 16, blood pressure 131/60. HEENT: Negative. NECK: Supple. HEART: Regular rate and rhythm. LUNGS: Clear. ABDOMEN: Dressings dry and intact. Aquacel dressings on. EXTREMITIES: Without peripheral edema. ASSESSMENT: Exploratory laparotomy with an incisional hernia: 1. Repair of incarcerated incisional hernia. 2. Excision of peritoneal nodules. 3. Placement of Vicryl mesh. POSTOPERATIVE DIAGNOSES: 1. Multifocal incarcerated incisional hernia. 2. Peritoneal nodule. 3. Segment of appendix epiploica 6 cm. 4. Omentum x2 both less than 1 cm biopsies. 5. Date of procedure 10/31/2020, James You MD. PLAN: 1. Change Aquacel dressing. 2. Saline lock IV. 3. Continue use of incentive spirometer and ambulation. 4. We will evaluate p.r.n. or in a.m. 5. Plan discharge in a.m. Rani Rojo PA-C /[id number]
[2020-11-03] MEDS: Montelukast 10 MG Tab PO SCH (21:11)
[2020-11-04] MEDS: Albuterol/Ipratropium 3.0-0.5 MG/3 ML Neb Soln INH SCH (07:20)
[2020-11-04 07:44] VITALS: BP 166/81; PULSE 83
[2020-11-04] MEDS: Losartan 50 MG Tab PO SCH (08:33)
[2020-11-04] MEDS: Venlafaxine 75 MG Cap.ER PO SCH (08:34)
[2020-11-04] MEDS: Hypromellose 0.3% Ophth Soln 15 ML Bottle EYEBOTH SCH (08:35)
[2020-11-04] MEDS: Levothyroxine 100 MCG Tab PO SCH (08:35)
[2020-11-04] MEDS: Fluticasone Propionate Nasal Spray 16 GM Bottle NASBOTH SCH (08:35)
[2020-11-04] MEDS: Pantoprazole 40 MG Tab.CR PO SCH (08:36)
[2020-11-04] MEDS: Aspirin 81 MG Tab.EC PO SCH (08:36)
[2020-11-04] MEDS: Bisacodyl 5 MG Tab PO SCH (08:36)
[2020-11-04] MEDS: Docusate Sodium 100 MG Cap PO SCH (08:36)
[2020-11-04] MEDS: Gabapentin 300 MG Cap PO SCH (08:36)
--- NOTE | 2020-11-04 23:31 | DISCH ---
ADMISSION DIAGNOSIS: Incisional hernia. DISCHARGE DIAGNOSES: Exploratory laparotomy with an incisional hernia. 1. Repair of incarcerated incisional hernia. 2. Excision of peritoneal nodules. 3. Placement of Vicryl mesh. POSTOPERATIVE DIAGNOSES: 1. Multifocal incarcerated incisional hernia. 2. Peritoneal nodule. 3. Segment of appendix epiploica 6 cm. 4. Omentum x2, both less than 1 cm biopsies. Date of procedure, 10/31/2020; James You MD. HISTORY: Flavia Aragon is a 60-year-old female with incarcerated incisional hernia. After preoperative evaluation, discussion of possible risks and possible complications, she wished to proceed with surgical procedure. HOSPITAL COURSE: Flavia had surgery on 10/31/2020. She had no operative complications. On postoperative day #1, her Coughlin catheter was discontinued. IV was decreased to 100 mL per hour. She was started on a step 2 gastric bypass diet. On postoperative day #2, she was advanced to a step-4 gastric bypass diet and changed to oral pain medication. On postoperative day 3, she started having bowel movements. Pain was managed with oral pain medication. She remained to have quite a bit of pain with getting in and out of bed and ambulation. On postoperative day 4, vital signs were stable, activity was good, oral intake adequate. Her last bowel movement was on 11/03/2020, and she was able to be discharged to home without any complications. PHYSICAL EXAMINATION: GENERAL: Flavia Aragon is a pleasant 60-year-old female. VITAL SIGNS: Height is 5 feet 7 inches. Weight is 257 pounds. TPR is 96.8, 83, 16. Blood pressure 166/81. HEENT: Negative. NECK: Supple. HEART: Regular rate and rhythm. LUNGS: Clear. ABDOMEN: Aquacel dressings on with Kerlix to apply pressure to the former hernia site. EXTREMITIES: Without peripheral edema. DISPOSITION: Discharged to home. CONDITION: Stable and improving. FOLLOWUP APPOINTMENTS: With Rani Rojo PA-C, on 11/11/2020 at 9 a.m. HOME MEDICATION: Oxycodone 5 mg p.o. q.4 hours p.r.n. pain, #42, to resume home medication. DIET: Usual diet as tolerated. Drink 8 to 10 glasses of water a day. ACTIVITY: No lifting greater than 10 pounds for 6 weeks. OTHER ACTIVITY: Walk 6 times daily inside your home. Driving: Do not drive for 1 week and then within 6 hours of taking oxycodone. Shower/bathing: May shower. WOUND INCISION CARE: 1. Keep operative site clean and dry. Take off Aquacel dressing on 11/06/2020, and replace with a new Aquacel. Take out second Aquacel on 11/09/2020. 2. Keep 2 rolled up Kerlix over Aquacel dressing (hernia sites) until first postop appointment. Wear abdominal binder for 6 weeks and then as tolerated. Notify provider if any fever, increased pain, swelling, redness, drainage, nausea, or vomiting. Special instruction, use incentive spirometer 10 times every hour while awake for 1 week. /[id number]
--- NOTE | 2020-11-07 15:13 | OR ---
DATE OF PROCEDURE: 10/31/2020 SURGEON: James You MD PREOPERATIVE DIAGNOSIS: Incisional hernia. POSTOPERATIVE DIAGNOSES: 1. Multifocal incarcerated incisional hernia. 2. Peritoneal nodules x3 involving sigmoid colon, appendix epiploica, and omentum. OPERATIVE PROCEDURES: Exploratory laparotomy with: 1. Repair of incarcerated incisional hernia with mesh (48316, [id number]). 2. Excision of peritoneal nodule involving sigmoid colon, appendix epiploica (94709). 3. Removal of 2 adjacent nodules omentum (47152). 4. Placement of Vicryl mesh to limit adhesion formation between pelvic and abdominal wall and underlying viscera (61392). ANESTHESIA: General. BOG CUTTER: Rani Rojo PA-C. INDICATIONS FOR PROCEDURE: This is a 60-year-old female presenting with an incisional hernia. 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 She has developed now what appeared to be multifocal incisional hernia involving both the supraumbilical and infraumbilical areas of abdominal wall. Plan is to proceed with exploratory laparotomy with repair of the hernia with mesh, also do a thorough exploration of the abdomen at that time to make sure there has been no signs of any recurrence of the appendiceal carcinoma. Potential risks of the procedure including bleeding, infection, injury to underlying viscera, problems with the mesh becoming infected or the hernia recurring were all reviewed, and the patient wishes to proceed. DETAILS OF PROCEDURE: The patient was taken to the operating room, placed in a supine position. After general endotracheal anesthesia was induced, a Coughlin catheter was inserted, and the abdomen prepped and draped. The previous midline incision was then reused and carried down through the skin, subcutaneous tissue. This extended from roughly a handsbreadth below the xiphoid downward just below the umbilicus. As the peritoneal cavity was entered, some adhesions between the omentum and the anterior abdominal wall were taken down. The patient was noted to have 3 separate hernias, 2 above the umbilicus and 1 below the umbilicus. In each case, the hernia sacs were excised and sent as separate specimens. General exploration was undertaken. Nothing overtly was present in terms of any signs of recurrence, but there were some widened peritoneal nodules. One involved segment of the sigmoid colon, appendix epiploica, and the extent of those nodules was over around 6 cm area. This was excised and then sent for specimen. Two small nodules in the midportion of the omentum both less than 1 cm in size and were more or less [id number] were then also excised and sent as a separate specimen. Apart from that, there was no evidence of any signs of recurrence of the tumor. At this point, a Ventrio hernia patch measuring 22.1 x 27.1 cm was selected after mapping out the abdominal wall. This was soaked in an antibiotic-containing saline solution and roughly 5 cm intervals around the circumference of the 2-0 Vicryl sutures were placed on the polypropylene side of the mesh. Mesh was then placed in an intraperitoneal location. The upper half of the abdominal wall sutures were then pulled up through separate stab wounds well away from the fascial defect so as to provide a wide margin of the mesh away from the fascial defect. The of the hernias at this point was closed at the fascial level from within using a running #2 Vicryl stitch. The remainder of the sutures were then pulled thus giving the mesh in the lower abdomen. Prior to this, Vicryl mesh was placed across the area so as to limit recurrent adhesion formation between the mesh as well as surrounding the pelvic and abdominal wall. Once these were in place, the mesh was fixed circumferentially with titanium tacking screws on its underside within the shelf on the mesh, and at that point the midline fascia was approximated with #2 Vicryl stitch, subcutaneous tissue was approximated with 3 layers of 3-0 and 4-0 Vicryl stitch deep, and then kerri for the skin. Prior to closure, bilateral transversus abdominis plane blocks were then placed and the incision itself was anesthetized with 0.5% Marcaine mixed with lidocaine, and the patient was taken to the recovery room in satisfactory condition. Physician assistant clinical director, Rani Rojo, played an essential role in assisting in this case, helping to position the patient, retract structures as needed, as well as suturing and cutting sutures when indicated. Her presence improved patient safety and decreased operative time. James You MD /[id number]
== END 2020-11-04 10:40 | disposition home or self-care (01) | DRG 227 ==
LOC: JP.SDS 05:55 → JP.MS 05:55 → EDSTATUS 08:15 → JP.MS 10:10
PROVIDERS: ADMIT Surgery; ATTEND Surgery
PROC: 3E0M05Z Introduction of Adhesion Barrier into Peritoneal Cavity, Open Approach (ICD-10-PCS; principal; 2020-10-31)
PROC: 0JB80ZZ Excision of Abdomen Subcutaneous Tissue and Fascia, Open Approach (ICD-10-PCS; principal; 2020-10-31)
PROC: 0DBU0ZZ Excision of Omentum, Open Approach (ICD-10-PCS; principal; 2020-10-31)
PROC: 0WUF0JZ Supplement Abdominal Wall with Synthetic Substitute, Open Approach (ICD-10-PCS; principal; 2020-10-31)
DX: K43.0 Incisional hernia with obstruction, without gangrene (principal); K66.9 Disorder of peritoneum, unspecified; Z87.442 Personal history of urinary calculi; L57.0 Actinic keratosis; E11.9 Type 2 diabetes mellitus without complications; I10 Essential (primary) hypertension; E78.5 Hyperlipidemia, unspecified; E03.9 Hypothyroidism, unspecified; G47.33 Obstructive sleep apnea (adult) (pediatric); Z90.49 Acquired absence of other specified parts of digestive tract; Z90.710 Acquired absence of both cervix and uterus; Z98.890 Other specified postprocedural states; Z90.89 Acquired absence of other organs; Z79.82 Long term (current) use of aspirin; R22.2 Localized swelling, mass and lump, trunk
CPT/HCPCS: 94640; 94762; 97140-GO; 97165-GO; A9270-GY; C1713; C1781; C9113; J0171; J0330; J1100; J1170; J2020; J2185; J2405; J2704; J2710; J2795; J2916; J3010; J3490; J7121; J7620-GY

== ENCOUNTER 2020-11-27 11:41 | Emergency (ER) | payer BC ==
[2020-11-27 12:27] VITALS: BP 138/81; PULSE 65
--- NOTE | 2020-11-27 13:18 | EDM.PDOC ---
ED HPI GENERAL MEDICAL PROBLEM - General Chief Complaint: ENT Problem Stated Complaint: RIGHT EAR INFECTION Time Seen by Provider: 11/27/20 12:40 Source of Information: Reports: Patient History Limitations: Reports: No Limitations - History of Present Illness INITIAL COMMENTS - FREE TEXT/NARRATIVE: Flavia presents today for complaints of edema, redness and erythema for three da ys. She did recently have a biopsy of right ear which was positive for cancer. She denies any other injury, trauma to the ear. She denies fever, chills or any other new complaint. - Related Data Allergies Allergy/AdvReac Type Severity Reaction Status Date / Time adhesive tape Allergy Other Verified 11/27/20 12:25 amoxicillin [Amoxicillin] Allergy Chest Verified 11/27/20 12:25 Presssure amoxicillin trihydrate Allergy Itching Verified 11/27/20 12:25 [From Augmentin] tetracycline [Tetracycline] Allergy Chest Pain Verified 11/27/20 12:25 clindamycin HCl AdvReac Nausea Verified 11/27/20 12:25 [From Cleocin] clindamycin palmitate HCl AdvReac Nausea Verified 11/27/20 12:25 [From Cleocin] clindamycin phosphate AdvReac Nausea Verified 11/27/20 12:25 [From Cleocin] potassium clavulanate AdvReac Nausea Verified 11/27/20 12:25 [From Augmentin] steristrips Allergy Redness Uncoded 11/27/20 12:25 Home Meds: Home Meds Albuterol [Ventolin HFA] 1 - 2 puff INH Q4H PRN 04/22/13 [History] Aspirin 81 mg PO DAILY 04/22/13 [History] Levothyroxine [Synthroid] 100 mcg PO DAILY 04/22/13 [History] Montelukast [Singulair] 10 mg PO DAILY PRN 04/22/13 [History] EPINEPHrine [Epinephrine] 0.3 ml SQ ASDIRECTED PRN 10/16/19 [History] Fluticasone Propionate [Flonase] 2 spray DEMETRI DAILY 10/16/19 [History] Folic Acid 400 mcg PO DAILY 10/16/19 [History] Gabapentin [Neurontin] 300 mg PO BID 10/16/19 [History] L.acidoph,Paracasei, B.lactis [Probiotic] 1 cap PO DAILY PRN 10/16/19 [History] Losartan [Cozaar] 100 tab PO DAILY 10/16/19 [History] Venlafaxine [Effexor XR] 300 mg PO DAILY 10/16/19 [History] cycloSPORINE [Restasis] 1 drop EYEBOTH BID 10/16/19 [History] diazePAM [Valium] 10 mg PO DAILY PRN 10/16/19 [History] diphenhydrAMINE [Benadryl] 25 mg PO BEDTIME PRN 10/16/19 [History] Calcium Carbonate/Vitamin D3 [Calcium 500 + Vit D 400] 1 tab PO BID 08/29/20 [History] LORazepam [Ativan] 0.5 mg PO Q6H 10/26/20 [History] Pedi Multivit No.91/Iron Fum [Child's Chew Multivit W/Iron] 2 tab PO DAILY 10/31/20 [History] Wheat Dextrin [Benefiber] 1 each PO TID 10/31/20 [History] oxyCODONE 5 mg PO Q4H PRN #42 tablet 11/04/20 [Rx] Past Medical History HEENT History: Reports: Allergic Rhinitis, Impaired Vision Other HEENT History: glasses Cardiovascular History: Reports: Heart Murmur, High Cholesterol, Hypertension Other Cardiovascular History: one part of heart flows backward Respiratory History: Reports: Asthma, Sleep Apnea Gastrointestinal History: Reports: Chronic Diarrhea Genitourinary History: Reports: Renal Calculus DEVELOPMENT SYSTEM EFFICIENCY MANAGER History: Reports: Other (See Below) Other DEVELOPMENT SYSTEM EFFICIENCY MANAGER History: hysterectomy, ovarian cyst surgery Musculoskeletal History: Reports: Arthritis, Other (See Below) Other Musculoskeletal History: right upper arm pain Neurological History: Reports: Migraines Psychiatric History: Reports: Anxiety, Depression Endocrine/Metabolic History: Reports: Hypothyroidism, Other (See Below) Other Endocrine/Metabolic History: thyroid tumor Hematologic History: Reports: B12 Deficiency Oncologic (Cancer) History: Reports: Other (See Below) Other Oncologic History: appy ca, borderline skin ca Dermatologic History: Reports: Melanoma - Infectious Disease History Infectious Disease History: Reports: Chicken Pox, Mumps - Past Surgical History Head Surgeries/Procedures: Reports: None HEENT Surgical History: Reports: Naso-Sinus Surgery, Tonsillectomy Other HEENT Surgeries/Procedures: thyroidectomy complete Cardiovascular Surgical History: Reports: None Respiratory Surgical History: Reports: None GI Surgical History: Reports: Appendectomy, Bariatric Procedure, Cho lecystectomy, Colon, Colonoscopy, Hernia, Abdominal, Hernia Repair/Other, Lysis of Adhesions, Small Bowel Other GI Surgeries/Procedures: right hemicolectomy Female Surgical History: Reports: Breast Biopsy, Hysterectomy, Kidney stone extraction, Salpingo-Oophorectomy, Other (See Below) Other Female Surgeries/Procedures: ureter stent Endocrine Surgical History: Reports: Thyroidectomy Neurological Surgical History: Reports: None Musculoskeletal Surgical History: Reports: Other (See Below) Other Musculoskeletal Surgeries/Procedures:: right knee meniscus repair, rotator cuff left repair, torn ligament surgery middle finger right hand Oncologic Surgical History: Reports: None Dermatological Surgical History: Reports: Skin Biopsy Social & Family History - Family History Family Medical History: No Pertinent Family History HEENT: Reports: Cataract Cardiac: Reports: Afib, Pacemaker Respiratory: Reports: Sleep Apnea GI: Reports: Other (See Below) Other GI Family History: hernias OBGYN: Reports: Endometriosis Musculoskeletal: Reports: Arthritis, Fibromyalgia Neurological: Reports: CVA Endocrine/Metabolic: Reports: Hypoparathyroidism Dermatologic: Reports: Eczema - Tobacco Use Tobacco Use Status *Q: Never Tobacco User Second Hand Smoke Exposure: No - Caffeine Use Caffeine Use: Reports: Coffee, Soda - Recreational Drug Use Recreational Drug Use: No ED ROS ENT - Review of Systems Review Of Systems: See Below Constitutional: Reports: Other (pain to right ear lobe) HEENT: Reports: Ear Pain (ear lobe pain extending to area behind right ear, no pain to internal ear). Denies: Ear Discharge, Eye Discharge, Eye Pain, Hearing Loss, Nose Pain, Rhinitis, Sinus Problem, Throat Pain, Throat Swelling Respiratory: Reports: No Symptoms GI/Abdominal: Reports: Abdominal Pain (status post surgical intervention) Musculoskeletal: Reports: No Symptoms Skin: Reports: Erythema (to right ear with edema, slough noted to area of skin biopsy. ) Neurological: Reports: No Symptoms Psychiatric: Reports: No Symptoms Hematologic/Lymphatic: Reports: No Symptoms Immunologic: Reports: No Symptoms ED EXAM, ENT - Physical Exam Exam: See Below Exam Limited By: No Limitations General Appearance: Alert, WD/WN, No Apparent Distress Ears: Normal Canal, Hearing Grossly Normal, Normal TMs, Auricular Erythema (right), Auricular Ecchymosis, Auricular Tenderness, Mastoid Tenderness. No: Normal External Exam (right auricular pain, slough noted to skin biopsy at right inferior adelaida, no necrosis noted. No drainage noted. ), Canal Blood, Canal Discharge, Canal Foreign Body, Canal Material, Canal Swelling Nose: Normal Inspection Mouth/Throat: Normal Inspection, Normal Gums, Normal Lips, Normal Oropharynx. No: Hoarse Voice, Throat Pain, Throat Swelling, Tongue Swelling, Tonsillar Erythema, Tonsillar Exudates, Tonsillar Swelling, Uvular Deviation, Uvular Edema Head: Atraumatic, Normocephalic, Other (Noted tenderness without erythema to area posterior to right ear. ) Neck: Normal Inspection, Supple, Non-Tender, Full Range of Motion. No: Lymphadenopathy (R), Lymphadenopathy (L) Respiratory/Chest: No Respiratory Distress, Lungs Clear, Normal Breath Sounds, No Accessory Muscle Use, Chest Non-Tender. No: Crackles, Rales, Rhonchi, Wheezing Cardiovascular: Normal Peripheral Pulses, Regular Rate, Rhythm, No Edema, No Gallop, No JVD, No Murmur, No Rub Extremities: Normal Inspection, Normal Range of Motion, Non-Tender, No Pedal Edema, Normal Capillary Refill Neurological: Alert, Oriented, Normal Cognition, Normal Gait, No Motor/Sensory Deficits Psychiatric: Normal Affect, Normal Mood Skin: Warm, Dry, Erythema (right ear as above), Increased Warmth (right ear auricula) Lymphatic: Adenopathy (to right posterior auricular) Course - Vital Signs Last Recorded V/S: Last Vital Signs Temp 36.8 C 11/27/20 12:27 Pulse 65 11/27/20 12:27 Resp 18 11/27/20 12:27 BP 138/81 11/27/20 12:27 Pulse Ox 97 11/27/20 12:27 - Re-Assessments/Exams Free Text/Narrative Re-Assessment/Exam: Discussed findings with Flavia, allergies reviewed. She will take ciprofloxacin 500mg PO BID for 7 days. She will follow up with provider who completed biopsy for further instructions tomorrow. Free Text/Narrative Re-Assessment/Exam: 11/27/20 13:21 Medications telephoned in to [facility]. Departure - Departure Time of Disposition: 13:15 Disposition: Home, Self-Care 01 Condition: Good Clinical Impression: Perichondritis of ear - Discharge Information *PRESCRIPTION DRUG MONITORING PROGRAM REVIEWED*: Not Applicable *COPY OF PRESCRIPTION DRUG MONITORING REPORT IN PATIENT ULISES: Not Applicable Instructions: Perichondritis, Adult Referrals: Mohsen Russell MD [Primary Care Provider] - Forms: ED Department Discharge Additional Instructions: Keep right ear lobe clean and dry. May apply ice to scalp behind ear for pain/edema. Put mupirocin topical to wound twice per day. Take ciprofloxacin 500mg PO BID for 7 days. Contact your provider/ENT Saturday (11/28/2020) and let them know you have an infection and are taking ciprofloxacin for perichondritis. Follow up with them as directed. Return at any time for worsening, issues or concerns. Continue your current medications/pain medications. Sepsis Event Note (ED) - Evaluation Sepsis Screening Result: No Definite Risk - Focused Exam Vital Signs: Vital Signs Temp Pulse Resp BP Pulse Ox 11/27/20 12:27 36.8 C 65 18 138/81 97 11/27/20 12:26 36.8 C 65 18 138/81 97 - Assessment/Plan Assessment:: Perichondritis of ear Plan: Perichondritis of ear Keep right ear lobe clean and dry. May apply ice to scalp behind ear for pain/edema. Put mupirocin topical to wound twice per day. Take ciprofloxacin 500mg PO BID for 7 days. Contact your provider/ENT Saturday (11/28/2020) and let them know you have an infection and are taking ciprofloxacin for perichondritis. Follow up with them as directed. Return at any time for worsening, issues or concerns. Continue your current medications/pain medications.
== END 2020-11-27 13:36 | disposition home or self-care (01) ==
LOC: JP.ED 11:41
DX: H61.001 Unspecified perichondritis of right external ear (principal); I10 Essential (primary) hypertension; J45.909 Unspecified asthma, uncomplicated; M19.90 Unspecified osteoarthritis, unspecified site; E03.9 Hypothyroidism, unspecified; Z91.048 Other nonmedicinal substance allergy status; Z88.0 Allergy status to penicillin; Z88.1 Allergy status to other antibiotic agents; Z79.82 Long term (current) use of aspirin
CPT/HCPCS: 99283

== ENCOUNTER 2021-09-04 06:53 | Day surgery (SDC) | payer BC ==
[2021-09-04] MEDS ORDERED: Midazolam 1 MG/ML 2 ML SDV ONE (07:06)
[2021-09-04] MEDS ORDERED: Propofol 200 MG/20 ML SDV ONE ×2 (07:06→09:49)
[2021-09-04] MEDS ORDERED: fentaNYL 100 MCG/2 ML SDV ONE (07:06)
[2021-09-04] MEDS: Dextrose 5%-Lactated Ringers 1,000 ML IV SCH (07:49)
[2021-09-04] MEDS: Albuterol/Ipratropium 3.0-0.5 MG/3 ML Neb Soln NEB ONE (07:50)
[2021-09-04] MEDS ORDERED: Dexamethasone 4 MG/ML SDV ONE (09:14)
[2021-09-04] MEDS ORDERED: Ondansetron 4 MG/2 ML SDV ONE (09:14)
[2021-09-04 11:18] VITALS: BP 144/88; PULSE 65
== END 2021-09-04 12:00 | disposition home or self-care (01) ==
LOC: JP.SDS 06:53
PROVIDERS: ATTEND Surgery
DX: Z08 Encounter for follow-up examination after completed treatment for malignant neoplasm (principal); K64.9 Unspecified hemorrhoids; J45.909 Unspecified asthma, uncomplicated; G47.33 Obstructive sleep apnea (adult) (pediatric); I10 Essential (primary) hypertension; E66.9 Obesity, unspecified; Z90.49 Acquired absence of other specified parts of digestive tract
CPT/HCPCS: 94640; J1100; J2250; J2405; J2704; J3010; J7121; J7620-GY

== ENCOUNTER 2024-01-06 07:17 | Day surgery (SDC) | payer BC ==
[~2024-01-06 07:17] MED LIST: Bupivacaine 0.5% 30 ML SDV ONE
[2024-01-06] MEDS ORDERED: Propofol 200 MG/20 ML SDV ONE ×2 (07:21→12:20)
[2024-01-06] MEDS ORDERED: Midazolam 1 MG/ML 2 ML SDV ONE (07:21)
[2024-01-06] MEDS ORDERED: fentaNYL 100 MCG/2 ML SDV ONE (07:21)
[2024-01-06] MEDS ORDERED: Bupivacaine 0.5% 30 ML SDV ONE (07:23)
[2024-01-06 07:39] LABS: HEMATOCRIT 39.9 % (34.3-46.0); HEMOGLOBIN 13.6 g/dL (11.2-15.5); MEAN CORPUSCULAR HEMOGLOBIN 29.5 pg (31.6-35.5); MEAN CORPUSCULAR HGB CONC 34.1 g/dL (31.6-35.5); MEAN CORPUSCULAR VOLUME 86.6 fL (81.4-99.0); RED BLOOD CELL COUNT 4.61 M/uL (3.77-5.24); WHITE BLOOD CELL COUNT,WBC 8.4 K/uL (3.2-11.0)
[2024-01-06 08:07] LABS: A/G RATIO 0.9 (1.2-2.2); ALANINE AMINOTRANSFERASE,ALT 37 U/L (12-78); ALBUMIN 3.3 g/dL (3.4-5.0); ALKALINE PHOSPHATASE 114 U/L (46-116); ASPARTATE AMNIOTRANSFERASE,AST 24 U/L (15-37); BILIRUBIN TOTAL 0.5 mg/dL (0.2-1.0); BLOOD UREA NITROGEN,BUN 14 mg/dL (7-18); CALCIUM 8.6 mg/dL (8.5-10.1); CARBON DIOXIDE,CO2 27 mmol/L (21-32); CHLORIDE,CL 104 mmol/L (100-108); CREATININE 0.8 mg/dL (0.6-1.0); ESTIMATED GFR 83 mL/min (>60); GLUCOSE RANDOM 96 mg/dL (74-106); PROTEIN TOTAL,TP 6.8 g/dL (6.4-8.2); SODIUM,NA 140 mmol/L (140-148)
[2024-01-06] MEDS: Lactated Ringers 1,000 ML IV SCH (08:16)
[2024-01-06] MEDS: Nozin Nasal Sanitizer NASBOTH ONE (08:16)
[2024-01-06] MEDS ORDERED: ceFAZolin 2 GM in Premix Bag 1 BAG IV ONE (08:30)
[2024-01-06] MEDS ORDERED: Potassium Chloride 10% 20 MEQ/15 ML Soln 15 ML UD Cup PO ONE (08:34)
[2024-01-06] MEDS ORDERED: Potassium Chloride 20 MEQ in Premix Bag 1 BAG IV ONE (08:36)
[2024-01-06] MEDS ORDERED: Potassium Chloride 20 MEQ, Lidocaine 1% 2 ML in Premix Bag 1 BAG IV ONE (09:00)
[2024-01-06] MEDS: Potassium Chloride 20 MEQ, Lidocaine 1% 2 ML in Sodium Chloride 0.9% 100 ML IV ONE (09:05)
[2024-01-06] MEDS: Potassium Chloride 10% 20 MEQ/15 ML Soln 15 ML UD Cup PO ONE (09:08)
[2024-01-06] MEDS: ceFAZolin 2 GM in Premix Bag 1 BAG IV ONE (12:18)
[2024-01-06 15:17] VITALS: BP 137/77; PULSE 69
== END 2024-01-06 15:10 | disposition home or self-care (01) ==
LOC: JP.SDS 07:17
PROVIDERS: ATTEND Specialist
DX: M75.101 Unspecified rotator cuff tear or rupture of right shoulder, not specified as traumatic (principal); S46.211A Strain of muscle, fascia and tendon of other parts of biceps, right arm, initial encounter; M94.211 Chondromalacia, right shoulder; I10 Essential (primary) hypertension; E11.9 Type 2 diabetes mellitus without complications
CPT/HCPCS: 29827; 36415; 80053; 84132; 85027; A9270; C1713; J0665; J0690; J2250; J2704; J3010; J3480; J3490; J7120; 01630-QZ

== ENCOUNTER 2025-04-16 06:33 | Day surgery (SDC) | payer BC ==
[2025-04-16] MEDS: Lactated Ringers 1,000 ML IV SCH (07:27)
[2025-04-16] MEDS ORDERED: Propofol 200 MG/20 ML SDV ONE (07:28)
[2025-04-16] MEDS ORDERED: fentaNYL 50 MCG/ML SDV ONE (07:28)
[2025-04-16] MEDS ORDERED: Midazolam 1 MG/ML 2 ML SDV ONE (07:28)
[2025-04-16 08:57] VITALS: BP 120/59; PULSE 66
== END 2025-04-16 09:30 | disposition home or self-care (01) ==
LOC: JP.SDS 06:33
PROVIDERS: ATTEND Family Medicine
DX: Z12.11 Encounter for screening for malignant neoplasm of colon (principal); K51.40 Inflammatory polyps of colon without complications; K63.5 Polyp of colon; K57.30 Diverticulosis of large intestine without perforation or abscess without bleeding; I10 Essential (primary) hypertension; E03.9 Hypothyroidism, unspecified; Z98.0 Intestinal bypass and anastomosis status; Z90.49 Acquired absence of other specified parts of digestive tract; Z85.038 Personal history of other malignant neoplasm of large intestine; Z91.09 Other allergy status, other than to drugs and biological substances; Z88.1 Allergy status to other antibiotic agents; Z79.82 Long term (current) use of aspirin; Z79.899 Other long term (current) drug therapy; Z79.890 Hormone replacement therapy
CPT/HCPCS: 00811; 45380; J2250; J2704; J3010; J7120; 88305